=== PATIENT | male | born 1975 | race Caucasian/White ===

== ENCOUNTER 2025-08-01 09:25 | Inpatient (IN) | payer BC ==
[~2025-08-01] VITALS: Ht 177.8 cm; Wt 95.0 kg
[2025-08-01 09:32] VITALS: O2SAT 97
[2025-08-01 10:17] LABS: CLARITY URINE CLEAR (CLEAR); COLOR URINE YELLOW (YELLOW); GLUCOSE URINE NEGATIVE (NEGATIVE); KETONES URINE NEGATIVE (NEGATIVE); LEUKOCYTE ESTERASE URINE NEGATIVE (NEGATIVE); NITRITE URINE NEGATIVE (NEGATIVE); OCCULT BLOOD URINE NEGATIVE (NEGATIVE); PH URINE 6.0 (4.5-8.0); PROTEIN URINE NEGATIVE (NEGATIVE); SPECIFIC GRAVITY URINE 1.016 (1.005-1.030); UROBILINOGEN URINE 0.2 E.U./dL (0.2-1.0)
[2025-08-01 10:18] LABS: BASOPHILS % 0.5 % (0.0-2.0); EOSINOPHILS % 1.8 % (0.0-5.0); HEMATOCRIT. 42.7 % (42.0-52.0); HEMOGLOBIN. 14.1 g/dL (14.0-18.0); LYMPHOCYTES % 30.9 % (20.0-50.0); MEAN PLATELET VOLUME 8.2 fl (7.4-10.4); MONOCYTES % 8.8 % (2.0-8.0); NEUTROPHILS % 58.0 % (40.0-76.0); PLATELET 189 x1000/uL (130-400); RED BLOOD CELL COUNT 4.70 mill/uL (4.7-6.1); RED CELL DISTRIBUTION WIDTH 13.8 % (11.6-14.6)
[2025-08-01 10:30] LABS: INR 0.9
[2025-08-01 10:41] LABS: CREATININE 1.0 mg/dL (0.6-1.3)
[2025-08-01 10:42] LABS: PROTEIN TOTAL 7.6 g/dL (6.0-8.3); TROPONIN I HIGH SENSITIVITY < 4 ng/L (3.0-53); UREA NITROGEN BLOOD 14 mg/dL (9-23)
[2025-08-01 10:43] LABS: ASPARTATE AMINOTRANSFERASE 48 IU/L (<34)
[2025-08-01 10:44] LABS: BILIRUBIN DIRECT 0.2 mg/dL (<=3.0); BILIRUBIN TOTAL 0.7 mg/dL (0.1-1.0)
[2025-08-01] MEDS: ASPIRIN 81MG TABLET PO ONE (11:27)
[2025-08-01] MEDS: CLOPIDOGREL 75MG TABLET PO ONE (11:27)
[2025-08-01] MEDS: IOHEXOL-350 100 ML BOTTLE ONE (11:52)
[2025-08-01 11:58] VITALS: TEMP 36.8; O2SAT 94
[2025-08-01 12:13] VITALS: BP 153/99; PULSE 81; RESP 17; TEMP 98.24
== END 2025-08-01 14:10 | disposition left against medical advice (07) | DRG 552 ==
LOC: ER 09:25 → 5WST 11:49 → EDBEDREQ 12:06 → EDBEDREQTM 12:06 → ENRESERV 12:22
PROVIDERS: ADMIT Internal Medicine; ATTEND Internal Medicine
DX: M54.50 Low back pain, unspecified (principal); I10 Essential (primary) hypertension; R20.0 Anesthesia of skin; R20.2 Paresthesia of skin; Z53.29 Procedure and treatment not carried out because of patient's decision for other reasons; Z88.1 Allergy status to other antibiotic agents
CPT/HCPCS: 36415; 70496; 70498; 71045; 71275; 74174; 80048; 80076; 81003; 82962; 84484; 85025; 93005; 99291; Q9967